=== PATIENT | female | born 1975 | race Caucasian/White ===

== ENCOUNTER → 2023-10-15 | Outpatient (CLI) | payer BC ==
--- NOTE | 2023-10-17 12:12 | MM ---
Reason for Exam: Screening (asymptomatic). Baseline mammogram. Patient History: Menarche at age 10. First Full-Term at age 19. Last menstrual period: 09/23/2023 Risk Values: An 5 year model risk: 0.9%. NCI Lifetime model risk: 8.9%. Prior Study Comparison: Patient's first Mammogram. No prior studies available for comparison. Tissue Density: The breast tissue is heterogeneously dense. This may lower the sensitivity of mammography. Findings: Analyzed By CAD. Left breast:Asymmetries 14 mm measuring 6 mm from the nipple measuring 8 mm and 38 mm from the nipple and medial lateral aspects of the anterior breast. These located on CC view. In the right breast is a asymmetry 6.9 cm from the nipple measuring 4 mm. Overall Assessment: Incomplete: need additional imaging evaluation, BI-RAD 0 Management: Diagnostic Mammogram of both breasts. [facility] will attempt to contact patient to return for supplemental views and ultrasound if indicated. Patient should continue monthly self-breast exams. A clinical breast exam by your physician is recommended on an annual basis. This exam should not preclude additional follow-up of suspicious palpable abnormalities. Note on An scores and lifetime risk: 1. A An score greater than 3% is considered moderate risk. If this is the case, consider specialist referral to assess eligibility for a risk reducing agent. 2. If overall lifetime risk for the development of breast cancer is 20% or higher, the patient may qualify for future screening with alternating mammogram and breast MRI. Electronically signed and approved by: Carlito Rodriguez DO
== END | disposition home or self-care (01) ==
LOC: RADMAMWWP 07:34
PROVIDERS: ATTEND Family Medicine
DX: Z12.31 Encounter for screening mammogram for malignant neoplasm of breast (principal)
CPT/HCPCS: 77067

== ENCOUNTER → 2023-11-01 | Outpatient (CLI) | payer BC ==
--- NOTE | 2023-11-01 08:43 | MM ---
Reason for Exam: Additional evaluation requested from abnormal screening. Last screening mammogram was performed less than 1 month ago. Patient History: Menarche at age 10. First Full-Term at age 19. Last menstrual period: 09/30/2023 Risk Values: An 5 year model risk: 0.9%. NCI Lifetime model risk: 8.9%. Prior Study Comparison: 10/15/2023 Bilateral MG screening mammo w CAD, [facility]. Tissue Density: There are scattered fibroglandular densities. Findings: Analyzed By CAD. On the right, 5 mm posterior central nodularity appears circumscribed on spot 3-D CC view. Not as well-seen on the spot 3-D MLO or 3-D lateral views, possibly a hypodense subtle nodule at the 5 to 6:00 position. Short interval follow-up recommended for suspected small cyst. On the left, no persisting abnormality is seen. Findings compatible with superimposition shadow. Overall Assessment: Probably benign, BI-RAD 3 Management: Diagnostic Mammogram of the right breast in 6 months. . Results were given to the patient verbally at the time of exam. Patient should continue monthly self-breast exams. A clinical breast exam by your physician is recommended on an annual basis. This exam should not preclude additional follow-up of suspicious palpable abnormalities. Note on An scores and lifetime risk: 1. A An score greater than 3% is considered moderate risk. If this is the case, consider specialist referral to assess eligibility for a risk reducing agent. 2. If overall lifetime risk for the development of breast cancer is 20% or higher, the patient may qualify for future screening with alternating mammogram and breast MRI. Electronically signed and approved by: Wayne Diaz M.D. Radiologist
== END | disposition home or self-care (01) ==
LOC: RADMAMWWP 07:05
PROVIDERS: ATTEND Family Medicine
DX: R92.323 Mammographic fibroglandular density, bilateral breasts (principal)
CPT/HCPCS: 77062; 77066

== ENCOUNTER → 2024-05-06 | Outpatient (CLI) | payer OTHER ==
--- NOTE | 2024-05-06 07:34 | MM ---
Reason for Exam: Follow-up at short interval from prior study. Last screening mammogram was performed 7 month(s) ago. Patient History: Menarche at age 10. First Full-Term at age 19. Risk Values: An 5 year model risk: 0.9%. NCI Lifetime model risk: 8.8%. Prior Study Comparison: 10/15/2023 Bilateral MG screening mammo w CAD, [facility]. 11/01/2023 Bilateral MG 3D work up w/cad [facility], [facility]. Tissue Density: There are scattered areas of fibroglandular density. Findings: Analyzed By CAD. The questioned posterior 5:00 nodule has become less pronounced, smaller, low density. Barely identified now on the 3-D CC views. Findings suggest a benign etiology such as a fluctuating cyst. Otherwise, no significant change. Overall Assessment: Benign, BI-RAD 2 Management: Screening Mammogram of both breasts in 6 months. Back on schedule. Results were given to the patient verbally at the time of exam. Patient should continue monthly self-breast exams. A clinical breast exam by your physician is recommended on an annual basis. This exam should not preclude additional follow-up of suspicious palpable abnormalities. Note on An scores and lifetime risk: 1. A An score greater than 3% is considered moderate risk. If this is the case, consider specialist referral to assess eligibility for a risk reducing agent. 2. If overall lifetime risk for the development of breast cancer is 20% or higher, the patient may qualify for future screening with alternating mammogram and breast MRI. Electronically signed and approved by: Wayne Diaz M.D. Radiologist
== END | disposition home or self-care (01) ==
LOC: RADMAMWWP 07:04
PROVIDERS: ATTEND Family Medicine
DX: N63.10 Unspecified lump in the right breast, unspecified quadrant (principal); R92.321 Mammographic fibroglandular density, right breast
CPT/HCPCS: 77061; 77065

== ENCOUNTER → 2024-09-25 | Outpatient (CLI) | payer OTHER ==
--- NOTE | 2024-09-25 09:45 | CTL ---
EXAMINATION TYPE: CT Low Dose Lung DATE OF EXAM: 09/25/2024 8:04 AM COMPARISON: None. CLINICAL INDICATION: Female, 49 years old with history of Z12.2, F17.210, , History of tobacco use. TECHNIQUE: Low Dose CT Lung Screening, Low dose computed tomography scan was performed through the est at 1 millimeter thick sections and reconstructed images in the coronal plane at 1 mm thick sectio ns. IV CONTRAST USED: None. SCREENING VISIT: First visit CT DLP: mGycm, Automated exposure control for dose reduction was used. FINDINGS: CT DIAGNOSTIC QUALITY: Satisfactory LUNG NODULES: Calcified granuloma right lower lobe. Additional smaller right lower lobe calcified gra nuloma. Calcified hilar lymph nodes appreciated. LUNGS: COPD: Severity: Mild Fibrosis: Severity:None Lymph nodes: None Other findings: None RIGHT PLEURAL SPACE: Effusion: None Calcification: None Thickening: None Pneumothorax: None LEFT PLEURAL SPACE: Effusion: None Calcification: None Thickening: None Pneumothorax: None HEART: Heart Size: Mildly enlarged Coronary calcification: Mild Pericardial effusion: None OTHER FINDINGS: Upper abdomen: No significant abnormality Bony thorax: Degenerative changes Supraclavicular region: No significant abnormalityOther: No significant abnormalityI IMPRESSION: 1. No clinically significant pulmonary nodules. Evidence of remote granulomatous disease. 2. Mild emphysema. CT LUNG RAD AND CT CHEST RECOMMENDATION: Lung rad 2 benign appearance and/or behavior. S Modifier (other clinically significant findings): [facility], , 09/25/2024 9:43 AM
== END | disposition home or self-care (01) ==
LOC: RADCTMAIN 07:42
PROVIDERS: ATTEND Family Medicine
DX: Z12.2 Encounter for screening for malignant neoplasm of respiratory organs (principal); J44.9 Chronic obstructive pulmonary disease, unspecified; J43.9 Emphysema, unspecified; F17.210 Nicotine dependence, cigarettes, uncomplicated
CPT/HCPCS: 71271

== ENCOUNTER → 2024-12-08 | Outpatient (CLI) | payer OTHER ==
--- NOTE | 2024-12-08 08:07 | MM ---
Reason for Exam: Screening (asymptomatic). Last screening mammogram was performed 7 month(s) ago. Patient History: Menarche at age 10. First Full-Term at age 19. Last menstrual period: 11/18/2024 Risk Values: An 5 year model risk: 0.9%. NCI Lifetime model risk: 8.8%. Prior Study Comparison: 10/15/2023 Bilateral MG screening mammo w CAD, [facility]. 11/01/2023 Bilateral MG 3D work up w/cad [facility], [facility]. 05/06/2024 Bilateral MG 3D diag mammo w/cad ROS[facility], [facility]. Tissue Density: The breasts are heterogeneously dense, which may obscure small masses. Findings: Analyzed By CAD. There is no suspicious group of microcalcifications or new suspicious mass in either breast. Overall Assessment: Negative, BI-RAD 1 Management: Screening Mammogram of both breasts in 1 year. . Patient should continue monthly self-breast exams. A clinical breast exam by your physician is recommended on an annual basis. This exam should not preclude additional follow-up of suspicious palpable abnormalities. Note on An scores and lifetime risk: 1. A An score greater than 3% is considered moderate risk. If this is the case, consider specialist referral to assess eligibility for a risk reducing agent. 2. If overall lifetime risk for the development of breast cancer is 20% or higher, the patient may qualify for future screening with alternating mammogram and breast MRI. [facility], , 12/08/2024 8:04 AM. Electronically signed and approved by: Kofi Nugent M.D.
== END | disposition home or self-care (01) ==
LOC: RADMAMWWP 07:12
PROVIDERS: ATTEND Family Medicine
DX: Z12.31 Encounter for screening mammogram for malignant neoplasm of breast (principal); R92.333 Mammographic heterogeneous density, bilateral breasts
CPT/HCPCS: 77063; 77067

== ENCOUNTER → 2025-03-18 | Outpatient (CLI) | payer OTHER ==
--- NOTE | 2025-03-18 09:37 | MR ---
EXAMINATION TYPE: MR cervical spine wo con DATE OF EXAM: 03/18/2025 7:59 AM COMPARISON: None. CLINICAL INDICATION: Female, 50 years old with history of M54.12 C RADICULOPATHY R20.2 PARESTHESIA OF SKIN, weakness in left arm and pain in neck x2 months TECHNIQUE: Multiplanar, multisequence images of the cervical spine were acquired without contrast. FINDINGS: No craniocervical junction abnormality, predental space widening, or prevertebral soft tissue swellin g. Patient is status post C4-C6 ACDF. Straightening of the normal cervical lordosis. Moderate degenerative disc disease above the fusion at C3-C4 with some edematous Modic type I endplat e change, desiccated and narrowed disc and disc osteophyte complex formation. Changes result in a gra de 1 anterolisthesis and mild spinal canal stenosis with AP canal dimension narrowed to 8 mm. Abutmen t and slight flattening of the ventral cord here. Mild degenerative disc disease below the fusion at C6-C7 with additional edematous Modic type I endpl ate change and bulging disc. This minimally impresses upon to the ventral thecal sac but without sign ificant spinal canal stenosis. Scattered mild and moderate facet and uncovertebral joint arthropathy. Straightening of the normal cervical lordosis. Trace grade 1 anterolisthesis C3-C4 T2-T3 and T3-T4. This appears to be secondary to facet arthropath y. No discrete T2-weighted cord signal abnormality. At C3-C4, hypertrophic facet arthropathy contributes to moderate left and mild right neural foraminal stenosis. At C3-C4, residual uncovertebral joint hypertrophic changes contribute to mild left neural foraminal stenosis. At C4-C5, residual hyperostotic changes of the uncovertebral joint continues to mild left neuroforami nal stenosis. No prevertebral or paravertebral soft tissue abnormality. IMPRESSION: 1. Status post C4-C6 ACDF. There is moderate degenerative disc disease with edematous Modic type I en dplate change both above and below the fusion. Additional scattered mild and moderate facet and uncov ertebral joint arthropathy. 2. Above the fusion at C3-C4, there is a degenerative grade 1 anterolisthesis and disc osteophyte com plex causing a mild focal spinal canal stenosis (AP canal dimension narrowed down to 8 mm). Abutment and slight flattening of the ventral cord. No parker cord compression or high-grade canal compromise. 3. Variable mild neuroforaminal stenoses as outlined above moderate on the left at C3-C4. 4. Degenerative grade 1 anterolisthesis C3-C4, T2-T3, T3-T4. Straightening of the normal cervical parker dosis. [facility], Workstation: [facility], 03/18/2025 9:35 AM
--- NOTE | 2025-03-18 17:07 | US ---
EXAMINATION TYPE: US carotid duplex BILAT DATE OF EXAM: 03/18/2025 COMPARISON: NONE CLINICAL INDICATION: Female, 50 years old with history of R74.8 ABNORMAL LEVELS OTHER SERUM ENZYMES; Neck surgery in 2018, left neck pain and numbness spreading to shoulder since, right arm numbness; Sm oker; Patient denies any other signs, symptoms, or relevant history Dizziness TECHNIQUE: Grayscale, color Doppler and spectral Doppler evaluation of the bilateral carotid systems and vertebral arteries. Indirect Doppler criteria was utilized. FINDINGS: EXAM MEASUREMENTS: RIGHT: Peak Systolic Velocity (PSV) cm/sec ----- Right CCA: 74 ----- Right ICA: 112 ----- Right ECA: 89 ICA/CCA ratio: 1.5 RIGHT: End Diastole cm/sec ----- Right CCA: 34 ----- Right ICA: 50 ----- Right ECA: 22 LEFT: Peak Systolic Velocity (PSV) cm/sec ----- Left CCA: 102 ----- Left ICA: 123 ----- Left ECA: 88 ICA/CCA ratio: 1.2 LEFT: End Diastole cm/sec ----- Left CCA: 37 ----- Left ICA: 50 ----- Left ECA: 19 VERTEBRALS (direction of flow): Right Vertebral: Antegrade Left Vertebral: Antegrade Rhythm: Normal INTERNAL AFFAIRS INVESTIGATOR NOTES: No intimal thickening, plaque, or elevated velocities. Color Doppler imaging shows patency with blood flow throughout the carotid artery. Spectral waveforms are within normal limits. IMPRESSION: No hemodynamically significant internal carotid artery stenosis on either side. Criteria for Assigning % of Stenosis / Diameter reduction (Estimation based on the indirect measurements of the internal carotid artery velocities (ICA PSV). 1. Normal (no stenosis)=ICA PSV < 180 cm/s: ratio < 2.0: ICA EDV<40 cm/s. 2. Less than 50% stenosis=ICA PSV < 180 cm/s: ratio < 2.0: ICA EDV<40 cm/s. 3. 50 to 69% stenosis=ICA PSV of 180 to 230 cm/s: ration 2.0 ? 4.0: ICA EDV 40-100 cm/s. PSV 125-180 cm/sec and ICA/CCA PSV Ratio ? 2.0 is also consistent with 50-69% stenosis 4. Greater than 70% stenosis to near occlusion= ICA PSV > 230 cm/s: ratio > 4.0: ICA EDV > 100 cm/s. 5. Near occlusion= ICA PSV velocities may be low or undetectable: variable ratio and ICA EDV. 6. Total occlusion=unable to detect flow. [facility], Workstation: [facility], 03/18/2025 5:04 PM
== END | disposition home or self-care (01) ==
LOC: RADMRIMAIN 07:00
PROVIDERS: ATTEND Family Medicine
DX: M51.16 Intervertebral disc disorders with radiculopathy, lumbar region (principal); M47.26 Other spondylosis with radiculopathy, lumbar region; M48.02 Spinal stenosis, cervical region; R20.2 Paresthesia of skin; M43.16 Spondylolisthesis, lumbar region; M43.14 Spondylolisthesis, thoracic region; Z98.1 Arthrodesis status; R74.8 Abnormal levels of other serum enzymes; M25.78 Osteophyte, vertebrae
CPT/HCPCS: 72141; 93880